=== PATIENT | female | born 1985 | race Caucasian/White ===

== ENCOUNTER 2020-04-27 18:19 | Emergency (ER) | payer OTHER ==
--- NOTE | 2020-04-27 19:06 | EDM.PDOC ---
ED HPI GENERAL MEDICAL PROBLEM - General Chief Complaint: Lower Extremity Injury/Pain Stated Complaint: ROLLED ANKLE Time Seen by Provider: 04/27/20 19:07 Source of Information: Reports: Patient History Limitations: Reports: No Limitations - History of Present Illness INITIAL COMMENTS - FREE TEXT/NARRATIVE: pt was walking and rolled her ankle after stepping in a hole this pm. She is having pain on the lateral aspect of the ankle. Pt has some pain with weight bearing but it is not severe. Onset: Today Duration: Hour(s): Location: Reports: Lower Extremity, Right Associated Symptoms: Reports: No Other Symptoms - Related Data Allergies Allergy/AdvReac Type Severity Reaction Status Date / Time Penicillins Allergy Rash Verified 04/27/20 18:39 sertraline [From Zoloft] Allergy Rash Verified 04/27/20 18:39 Home Meds: Home Meds NK [No Known Home Meds] 04/27/20 [History] Past Medical History Respiratory History: Reports: Asthma Neurological History: Reports: Seizure - Past Surgical History HEENT Surgical History: Reports: Adenoidectomy, Tonsillectomy Social & Family History - Tobacco Use Smoking Status *Q: Never Smoker Review of Systems - Review of Systems Review Of Systems: See Below Constitutional: Reports: No Symptoms Eyes: Reports: No Symptoms Ears: Reports: No Symptoms Nose: Reports: No Symptoms Mouth/Throat: Reports: No Symptoms Respiratory: Reports: No Symptoms Cardiovascular: Reports: No Symptoms Musculoskeletal: Reports: Other (pain on the outside of the ankle. There is slight swelling. Minimal tenderness of the foot. ) Skin: Reports: No Symptoms ED EXAM, GENERAL - Physical Exam Exam: See Below Free Text/Narrative:: pt was walking and rolled her ankle inward. She has pain on the latetral aspect of the ankele. General Appearance: Alert, Anxious Extremities: Other (swelling on the lateral aspect of the ankle slightly tender, good filling. ) Neurological: Alert, Oriented, Normal Cognition Course - Vital Signs Last Recorded V/S: Last Vital Signs Temp 37.2 C 04/27/20 18:44 Pulse 91 04/27/20 18:44 Resp 14 04/27/20 18:44 BP 146/93 H 04/27/20 18:44 Pulse Ox 97 04/27/20 18:44 - Orders/Labs/Meds Orders: Active Orders 24 hr Category Date Time Status Ankle Min 3V Rt [CR] Stat Exams 04/27/20 18:39 Taken - Re-Assessments/Exams Free Text/Narrative Re-Assessment/Exam: 04/27/20 19:12 xray reveals no fractures present. A stirup splint was applied. Departure - Departure Time of Disposition: 19:04 Disposition: Home, Self-Care 01 Condition: Fair Clinical Impression: Sprain of right ankle - Discharge Information Referrals: PCP,None [Primary Care Provider] - Forms: ED Department Discharge Care Plan Goals: motrin 600m q6h prn for pain, stirup splint, elevate and cool pack to prevent swelling. minimal wt bearing, increase activity as pain decreases. Sepsis Event Note (ED) - Evaluation Sepsis Screening Result: No Definite Risk - Focused Exam Vital Signs: Vital Signs Temp Pulse Resp BP Pulse Ox 04/27/20 18:44 37.2 C 91 14 146/93 H 97 04/27/20 18:35 37.2 C 91 14 146/93 H 97 - My Orders Last 24 Hours: My Active Orders 04/27/20 18:39 Ankle Min 3V Rt [CR] Stat - Assessment/Plan Last 24 Hours: My Active Orders 04/27/20 18:39 Ankle Min 3V Rt [CR] Stat
--- NOTE | 2020-04-30 10:31 | CR ---
Ankle Min 3V Rt CLINICAL HISTORY: Injury FINDINGS: The soft tissues are normal. No fractures seen. There is some mild widening of the tibiofibular joint space. Ankle mortise is minimally widened laterally compared to the medial aspect. Talar dome has a normal contour. Impression: No fracture Mild widening of the tibial fibular joint with minimal widening of the ankle mortise laterally. Ligamentous injury is not excluded
== END 2020-04-27 19:23 | disposition home or self-care (01) ==
LOC: JP.ED 18:19
DX: S93.401A Sprain of unspecified ligament of right ankle, initial encounter (principal); J45.909 Unspecified asthma, uncomplicated; Z88.0 Allergy status to penicillin; Z88.8 Allergy status to other drugs, medicaments and biological substances; X50.9XXA Other and unspecified overexertion or strenuous movements or postures, initial encounter
CPT/HCPCS: 73610-26-RT; 73610-RT; 99282; 99283